=== PATIENT | male | born 1955 | race Caucasian/White ===

== ENCOUNTER 2020-12-08 17:39 | Emergency (ER) | payer MEDICARE, BC ==
[2020-12-08] MEDS: Tetracaine HCl/PF 0.5% 4 ML Bottle EYERT ONE (18:09)
[2020-12-08] MEDS: Balanced Salt Solution Ophth Irrig 30 ML Bottle EYERT ONE (18:09)
--- NOTE | 2020-12-08 18:30 | EDM.PDOC ---
ED HPI GENERAL MEDICAL PROBLEM - General Chief Complaint: ENT Problem Stated Complaint: Metal in eye Time Seen by Provider: 12/08/20 17:55 Source of Information: Reports: Patient History Limitations: Reports: No Limitations - History of Present Illness INITIAL COMMENTS - FREE TEXT/NARRATIVE: He presents to the emergency department with complaints of something in his left eye. He was drilling into a metal piece above his head and felt something in the right eye. Feels like it is pretty much right in the center. He did try washing it out with some eyedrops at home but was unsuccessful. He denies significant change in his vision. He does wear glasses and was wearing them at the time. He denies any other acute concerns. He does have a history of hypertension and diabetes. - Related Data Allergies Allergy/AdvReac Type Severity Reaction Status Date / Time Einiejc-Syl-Ovo Reductase Allergy Joint Pain Verified 12/08/20 17:40 Inhibitor Home Meds: Home Meds Ibuprofen 600 mg PO Q6H PRN 10/14/18 [History] Losartan Potassium 100 mg PO DAILY 10/14/18 [History] Omeprazole Magnesium [Prilosec Otc] 40 mg PO DAILY 10/14/18 [History] amLODIPine Besylate [Amlodipine Besylate] 5 mg PO DAILY 10/14/18 [History] glipiZIDE [Glipizide Xl] 10 mg PO BID 10/14/18 [History] Past Medical History HEENT History: Reports: Other (See Below) Other HEENT History: deviated nasal septum Cardiovascular History: Reports: Afib, High Cholesterol, Hypertension Respiratory History: Reports: Sleep Apnea Gastrointestinal History: Reports: Bowel Obstruction, Other (See Below) Other Gastrointestinal History: esophageal reflux Genitourinary History: Reports: Other (See Below) Other Genitourinary History: hypogonadism. ED Endocrine/Metabolic History: Reports: Diabetes, Type II Hematologic History: Reports: Polycythemia Oncologic (Cancer) History: Reports: Other (See Below) Other Oncologic History: testicular ED ROS GENERAL - Review of Systems Review Of Systems: See Below Constitutional: Denies: Fever, Chills HEENT: Reports: Eye Pain. Denies: Contact Lenses Respiratory: Denies: Shortness of Breath, Cough Cardiovascular: Denies: Chest Pain GI/Abdominal: Denies: Abdominal Pain, Diarrhea, Nausea, Vomiting ED EXAM, GENERAL - Physical Exam Exam: See Below Exam Limited By: No Limitations General Appearance: Alert, WD/WN Eye Exam: Right Eye: Corneal Abrasion (Small corneal abrasion in the center of the pupil.), Foreign Body (Tiny probably metal foreign body at 7:00 just outside of the iris.), Vision Changes (Mild decreased vision in the right eye compared to the left.), Bilateral Eye: PERRL Respiratory/Chest: No Respiratory Distress, Lungs Clear Cardiovascular: Regular Rate, Rhythm, No Murmur Course - Vital Signs Text/Narrative:: Eye 1 drop of tetracaine is instilled in the right eye with good analgesia. Stained with fluorescein which showed a small corneal abrasion area in the center of the eye. Also appear to be a very small foreign body at 7:00 just outside the edge of the iris. An 18-gauge 1/2 inch needle was used to free up the foreign body. Following this he stated that the foreign body sensation was significantly improved. Last Recorded V/S: Last Vital Signs Temp 36.8 C 12/08/20 17:41 Pulse 83 12/08/20 17:41 Resp 16 12/08/20 17:41 BP 135/82 12/08/20 17:41 Pulse Ox 97 12/08/20 17:41 - Orders/Labs/Meds Meds: Medications Discontinued Medications Generic Name Dose Route Start Last Admin Trade Name Raffi PRN Reason Stop Dose Admin Balanced Salt Solution 1 ml 12/08/20 18:06 12/08/20 18:09 Eye Stream Eye Rinse EYERT 12/08/20 18:07 30 ml ONETIME ONE Administration Tetracaine HCl 1 ml 12/08/20 18:06 12/08/20 18:09 Tetracaine 0.5% Steri-Unit Charlette EYERT 12/08/20 18:07 4 ml ASDIRECTED ONE Administration Departure - Departure Time of Disposition: 18:30 Disposition: Home, Self-Care 01 Condition: Good Clinical Impression: Foreign body of right eye, Corneal abrasion, right - Discharge Information *PRESCRIPTION DRUG MONITORING PROGRAM REVIEWED*: Not Applicable *COPY OF PRESCRIPTION DRUG MONITORING REPORT IN PATIENT SHAQ: Not Applicable Instructions: Eye Foreign Body, Emcl-rq-Esin Referrals: Mica Bird NP [Primary Care Provider] - Additional Instructions: He is given polymyxin be eyedrops. 2 drops in the right eye 4 times daily. Should irrigate the eye with a saline eyedrop every 1-2 hours. Return or follow-up with ophthalmology if his symptoms are persisting over the next 2 to 3 days. Sepsis Event Note (ED) - Evaluation Sepsis Screening Result: No Definite Risk - Focused Exam Vital Signs: Vital Signs Temp Pulse Resp BP Pulse Ox 12/08/20 17:41 36.8 C 83 16 135/82 97
== END 2020-12-08 18:35 | disposition home or self-care (01) ==
LOC: LL.ED 17:39
DX: T15.01XA Foreign body in cornea, right eye, initial encounter (principal); I48.91 Unspecified atrial fibrillation; I10 Essential (primary) hypertension; K21.9 Gastro-esophageal reflux disease without esophagitis; E11.9 Type 2 diabetes mellitus without complications; Z88.8 Allergy status to other drugs, medicaments and biological substances; Z79.899 Other long term (current) drug therapy
CPT/HCPCS: 65220; 99283; 99283-25